=== PATIENT | female | born 1945 | race Hispanic/Latino ===

== ENCOUNTER 2017-05-31 09:21 | Day surgery (SDC) | payer MEDICARE ==
[2017-05-23 10:11] VITALS: BMI 25.8
[2017-05-31] MEDS ORDERED: Midazolam 2 MG/2 ML VIAL ONE (12:10)
[2017-05-31] MEDS ORDERED: Naloxone 0.4 mg/ml Inj (Adult) ONE (12:10)
[2017-05-31] MEDS ORDERED: Flumazenil 0.1 mg/ml Inj (5ml) IVP ONE (12:10)
[2017-05-31] MEDS ORDERED: Midazolam 2 MG/2 ML VIAL IV ONE ×5 (12:12→12:26)
[2017-05-31] MEDS ORDERED: Sodium Chloride 0.9% 1,000 ML IV SCH (13:15)
[2017-05-31 14:23] VITALS: BP 151/68; PULSE 57; RESP 18; TEMP 97.7; O2SAT 93
--- NOTE | 2017-05-31 16:45 | CARD ---
APPROVED REPORT EXAM: Transesophageal echocardiogram with color flow Doppler. INDICATION OBSTRUCTIVE HYPERTROPHIC CARDIOMYOPATHY Aortic Valve LVOT Peak Kldjivdi435.0cm/sLVOT VTI32.00cm Mitral Valve E/A ratio0.0 TDI E/Lateral E'0.0E/Medial E'0.0 Tricuspid Valve TR Peak [id number]/sRAP [id number] Peak Gr.39mmHg [id number] Reason For Test : R/O IHSS PROCEDURE After obtaining informed consent, patient underwent transesophageal echo in the Echo Lab. Type of Sedation : Conscious Sedation Sedation was administered by DR. Barajas. Sedation was achieved with Versed and , Fentanyl 4mg and 200 mcg intravenously. Transesophageal probe was inserted and advanced into esophagus without difficulty. Echo enhancement indication: R/O Septal defect. Echo enhancement agent administered: Agitated Saline The SHANTELL was performed without complications. Throughout the procedure, the blood pressure, pulse oximetry, cardiac rhythm, and rate were monitored. The patient tolerated the procedure without adverse effects. Recovery from conscious sedation was uneventful and vital signs were stable. LEFT VENTRICLE The left ventricle is normal size. There is mild left ventricular hypertrophy. Proximal septal thickening is noted. The left ventricular function is normal.EF-65-70% There is normal LV segmental wall motion. No left ventricle thrombus noted on this study. There is no ventricular septal defect visualized. There is no left ventricular aneurysm. There is no mass noted in the left ventricle. RIGHT VENTRICLE The right ventricle is normal size. There is normal right ventricular wall thickness. The right ventricular systolic function is normal. ATRIA The left atrium is moderately dilated. The right atrium is mildly dilated. RA -4.8 cm The interatrial septum is intact with no evidence for an atrial septal defect. AORTIC VALVE The aortic valve is mildly thickened. There is trace aortic regurgitation. There is no aortic valvular stenosis. There is no aortic valvular vegetation. MITRAL VALVE The mitral valve leaflets are thickened. There is no evidence of mitral valve prolapse. There is no mitral valve stenosis. Mitral regurgitation is moderate, when SBP_175, Mild to Moderate when SBP-121 TRICUSPID VALVE The tricuspid valve leaflets display thickening. There is moderate tricuspid regurgitation.RVSP-50 mmof Hg. There is no tricuspid valve prolapse or vegetation. There is no tricuspid valve stenosis. PULMONIC VALVE The pulmonary valve is normal in structure. There is trace pulmonic valvular regurgitation. There is no pulmonic valvular stenosis. GREAT VESSELS The aortic root is normal in size. The ascending aorta is normal in size. The pulmonary artery is normal. PERICARDIAL EFFUSION There is a trace pericardial effusion. There is no pleural effusion. <Conclusion> The left ventricle is normal size.Normal LVEF-65-70% There is mild left ventricular hypertrophy. Proximal septal thickening is noted. No EVIDENCE of OZZIE, nor IHSS. Peak gradient across LVOT-7-8 mm ay rest and mean -4 mmof hg. Bi-atrial enlargement. There is trace aortic regurgitation. Mitral regurgitation is moderate, when SBP_175, Mild to Moderate when SBP-121 There is moderate tricuspid regurgitation.RVSP-50 mmof Hg. There is no pleural effusion. Intact intra Atrial septum by Color flow and bubble study Velocity in LAAA>0.4 m/s Mild plaque noted in Descending aorta. CC; Drs. Pompa/ Jose Eduardo.
== END 2017-05-31 16:45 | disposition home or self-care (01) ==
LOC: TEE 09:21
PROVIDERS: ATTEND Internal Medicine Cardiovascular Disease
DX: I42.1 Obstructive hypertrophic cardiomyopathy (principal); I42.2 Other hypertrophic cardiomyopathy; I08.1 Rheumatic disorders of both mitral and tricuspid valves; I10 Essential (primary) hypertension; I25.10 Atherosclerotic heart disease of native coronary artery without angina pectoris; Z88.0 Allergy status to penicillin
CPT/HCPCS: 93312; J2250; J3010; J7040

== ENCOUNTER 2018-05-11 09:52 | Emergency (ER) | payer MEDICARE ==
[2018-05-11 09:52] VITALS: BMI 25.8
[2018-05-11 10:03] VITALS: RESP 18
--- NOTE | 2018-05-11 10:45 | ED PDOC ---
Arrival/HPI - General Chief Complaint: Headache Historian: Patient - History of Present Illness Narrative History of Present Illness (Text): 05/11/18 10:41 72yo female with pmhx of hypertension present with complaint of left sided head/face pain, left wrist and b/l fingers pain s/p trauma this morning. States she tripped and fell this morning. Notes hitting the left side of her face/head against an object and then breaking her fall. She denies LOC, dizziness, visual changes, focal weakness, nausea, vomiting, neck pain, back pain, any other complaint. Past Medical History - Provider Review Nursing Documentation Reviewed: Yes - Reproductive Menopause: Yes - Cardiac Hx Hypertension: Yes Hx Pacemaker: No - Pulmonary Hx Chronic Obstructive Pulmonary Disease (COPD): Yes - Neurological Hx Paralysis: No - Hematological/Oncological Hx Blood Transfusions: Yes Hx Blood Transfusion Reaction: No - Musculoskeletal/Rheumatological Hx Musculoskeletal Disorders: Yes - Psychiatric Hx Emotional Abuse: No Hx Physical Abuse: No Hx Substance Use: No - Surgical History Hx Cholecystectomy: Yes Hx Orthopedic Surgery: Yes - Anesthesia Hx Anesthesia Reactions: No Hx Malignant Hyperthermia: No - Suicidal Assessment Feels Threatened In Home Enviroment: No Family/Social History - Physician Review Nursing Documentation Reviewed: Yes Family/Social History: Unknown Family HX Smoking Status: Never Smoked Hx Alcohol Use: No Hx Substance Use: No Allergies/Home Meds Allergies/Adverse Reactions: Allergies Penicillins Allergy (Severe, Verified 05/11/18 10:03) BLISTERS tetracycline Allergy (Severe, Verified 05/11/18 10:03) CRAWLING FEELING CRAWLING FEELING lactose Adverse Reaction (Severe, Verified 05/11/18 10:03) GI SYMPTHOMS GI SYMPTHOMS Home Medications: Home Meds Medication Instructions Recorded Confirmed RX: Meclizine [Antivert] 12.5 mg PO QPM 04/14/14 05/11/18 Bioflav,Lemon/Vit Bcomp,C 1 cap PO DAILY 05/31/17 05/11/18 [Lipo-Flavonoid Plus Caplet] Metoprolol Tartrate [Lopressor] 25 mg PO BID 05/31/17 05/11/18 Review of Systems - Physician Review All systems were reviewed & negative as marked: Yes - Review of Systems Constitutional: Normal Eyes: Normal ENT: Normal Respiratory: Normal Cardiovascular: Normal Gastrointestinal: Normal Genitourinary Female: Normal Musculoskeletal: Arthralgias (B/L hand) Skin: Normal Neurological: Headache Endocrine: Normal Hemo/Lymphatic: Normal Psychiatric: Normal Physical Exam Vital Signs Reviewed: Yes Vital Signs Temp Pulse Resp BP Pulse Ox 05/11/18 10:00 98 F 67 18 209/80 H 98 05/11/18 09:52 98 F 67 18 209/80 H 98 Temperature: Afebrile Blood Pressure: Hypertensive Pulse: Regular Respiratory Rate: Normal Appearance: Positive for: Well-Appearing, Non-Toxic, Comfortable Pain Distress: None Mental Status: Positive for: Alert and Oriented X 3 - Systems Exam Head: Present: Atraumatic, Normocephalic, Other (Ecchymosis noted over the left temral area) Pupils: Present: PERRL Extroacular Muscles: Present: EOMI, Other (Left sided upper eyelid mild swelling with overlaying ecchymosis noted) Conjunctiva: Present: Normal Mouth: Present: Moist Mucous Membranes Neck: Present: Normal Range of Motion Respiratory/Chest: Present: Clear to Auscultation, Good Air Exchange. No: Respiratory Distress, Accessory Muscle Use Cardiovascular: Present: Regular Rate and Rhythm, Normal S1, S2. No: Murmurs Abdomen: No: Tenderness, Distention, Peritoneal Signs Back: Present: Normal Inspection Upper Extremity: Present: Normal ROM, NORMAL PULSES, Neurovascularly Intact, Other (Abrasion noted over the left and right 5th fingers). No: Cyanosis, Edema, Tenderness, Swelling, Deformity Lower Extremity: Present: Normal Inspection. No: Edema Neurological: Present: GCS=15, CN II-XII Intact, Speech Normal Skin: Present: Warm, Dry, Normal Color. No: Rashes Psychiatric: Present: Alert, Oriented x 3, Normal Insight, Normal Concentration Medical Decision Making ED Course and Treatment: 05/11/18 18:05 PT in ED for stated history. She was not in any distress and nurologically intact. Head CT IMPRESSION: No acute intracranial abnormality. Maxillofacial CT IMPRESSION: No acute fracture or dislocation. Right 3rd mandibular molar are periapical abscess. Right hand IMPRESSION: No acute displaced fracture or dislocation. Left hand IMPRESSION: No acute fracture or dislocation. Left wrist There is diffuse bone demineralization. No acute fracture or bone destruction. Bone alignment is normal. 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 SOFT TISSUES: Normal. OTHER FINDINGS: None. IMPRESSION: No acute fracture or dislocation. All result was DW the pt. she noted that she is currently on antibiotic for gingival infection. Abrasions was cleaned with betadine and bacitracine applied Referred to her PMD. - RAD Interpretation Radiology Orders: 05/11/18 10:15 HEAD W/O CONTRAST [CT] Stat 05/11/18 10:16 MAXILLOFACIAL W/O CONTRAST [CT] Stat HAND LEFT 3 VIEWS ROUTINE [RAD] Stat HAND RIGHT 3 VIEWS [RAD] Stat WRIST, LEFT 3 VIEWS [RAD] Stat - Medication Orders Current Medication Orders: Discontinued Medications Acetaminophen (Tylenol 325mg Tab) 650 mg PO STAT STA Stop: 05/11/18 10:18 Last Admin: 05/11/18 10:26 Dose: 650 mg MAR Pain/Vitals Document 05/11/18 10:26 SRE (Rec: 05/11/18 10:27 SRE [id number]) Pain Reassessment Is This A Pain ReAssessment? Yes Sleep Is patient sleeping during reassessment? No Presence of Pain Presence of Pain Yes Pain Scale Used Protocol: PSCALES Pain Scale Used Numeric Location Left, Right or Bilateral Bilateral Pain Location Body Site Hand Description Intermittent Disposition/Present on Arrival - Present on Arrival Any Indicators Present on Arrival: No History of DVT/PE: No History of Uncontrolled Diabetes: No Urinary Catheter: No History of Decub. Ulcer: No History Surgical Site Infection Following: None - Disposition Have Diagnosis and Disposition been Completed?: Yes Diagnosis: Head injury, Wrist pain, Hand pain, Abrasion Disposition: HOME/ ROUTINE Disposition Time: 11:45 Patient Plan: Discharge Condition: STABLE Discharge Instructions (ExitCare): Closed Head Injury, Muscle and Bone Pain (DC) Additional Instructions: Follow up with your Doctor/Dentist Return to ED for any new or worsening symptoms Referrals: Isela Turner MD [Medical Doctor] - Follow up with primary Forms: [employer] (Lithuanian)
--- NOTE | 2018-05-11 11:32 | CT ---
Date of service: 05/11/2018 PROCEDURE: CT HEAD WITHOUT CONTRAST. HISTORY: s/p head trauma COMPARISON: None available. TECHNIQUE: Axial computed tomography images were obtained through the head/brain without intravenous contrast. Radiation dose: Total exam DLP = 857.25 mGy-cm. This CT exam was performed using one or more of the following dose reduction techniques: Automated exposure control, adjustment of the mA and/or kV according to patient size, and/or use of iterative reconstruction technique. FINDINGS: HEMORRHAGE: No intracranial hemorrhage. BRAIN: Trivedi-white matter differentiation is preserved. There is no mass, mass effect or abnormal extra-axial fluid collection. There is no territorial infarction. The midline sagittal structures are normal. Subcentimeter bifrontal and left frontal parafalcine calcified extra-axial lesions may represent small calcified meningiomas. VENTRICLES: There is mild age-related global parenchymal volume loss and proportionate enlargement of the ventricles and cortical sulci. CALVARIUM: There is no calvarial fracture or extracranial soft tissue swelling. PARANASAL SINUSES: Predominantly clear. MASTOID AIR CELLS: Predominantly clear. OTHER FINDINGS: None. IMPRESSION: No acute intracranial abnormality.
--- NOTE | 2018-05-11 11:39 | CT ---
Date of service: 05/11/2018 PROCEDURE: CT MAXILLOFACIAL BONES WITHOUT CONTRAST HISTORY: left facial/periorbital pain COMPARISON: None available. TECHNIQUE: Contiguous axial CT images of the maxillofacial bones were obtained. Coronal and sagittal reformats were generated. Radiation dose: Total exam DLP = 855.26 mGy-cm. This CT exam was performed using one or more of the following dose reduction techniques: Automated exposure control, adjustment of the mA and/or kV according to patient size, and/or use of iterative reconstruction technique. FINDINGS: NASAL BONES: No acute fracture. ORBITS: The globes are symmetric and normal in appearance. No acute orbital fracture. PARANASAL SINUSES/ MASTOIDS: Small retention cyst/polyp in the left maxillary sinus. The remaining included paranasal sinuses are clear. MAXILLA: No acute maxillofacial fracture. MANDIBLE/ TEMPOROMANDIBULAR JOINTS: No acute fracture or dislocation. SKULL BASE: Unremarkable. TEMPORAL BONES: Middle ears and mastoid grossly unremarkable. OTHER FINDINGS: There is a periapical abscess in the right 3rd mandibular tooth. There is fatty atrophy of the right parotid gland. IMPRESSION: No acute fracture or dislocation. Right 3rd mandibular molar are periapical abscess.
--- NOTE | 2018-05-11 11:41 | RAD ---
Date of service: 05/11/2018 PROCEDURE: Three views of the right hand. HISTORY: s/p trauma COMPARISON: None. FINDINGS: BONES: There is diffuse bone demineralization. There is no acute displaced fracture or bone destruction. Bone alignment is normal. JOINTS: Mild degenerative osteoarthrosis in the interphalangeal and metacarpophalangeal joints. SOFT TISSUES: Normal. OTHER FINDINGS: None. IMPRESSION: No acute displaced fracture or dislocation.
--- NOTE | 2018-05-11 11:42 | RAD ---
PROCEDURE: Left Hand Radiographs. HISTORY: s/p trauma COMPARISON: None. FINDINGS: BONES: There is diffuse bone demineralization. There is no acute displaced fracture or bone destruction. Bone alignment is normal. JOINTS: Mild degenerative osteoarthrosis in the interphalangeal and metacarpophalangeal joints. SOFT TISSUES: Normal. OTHER FINDINGS: None. IMPRESSION: No acute fracture or dislocation.
--- NOTE | 2018-05-11 11:44 | RAD ---
Date of service: 05/11/2018 PROCEDURE: Left Wrist Radiographs. HISTORY: s/p trauma COMPARISON: None. FINDINGS: BONES: There is diffuse bone demineralization. No acute fracture or bone destruction. Bone alignment is normal. 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 SOFT TISSUES: Normal. OTHER FINDINGS: None. IMPRESSION: No acute fracture or dislocation.
[2018-05-11 11:50] VITALS: BP 183/77; PULSE 57; TEMP 98.2; O2SAT 99
[2018-05-11] MEDS ORDERED: Bacitracin 500 Units/gm Oint Foilpak UD ONE (11:54)
== END 2018-05-11 11:53 | disposition home or self-care (01) ==
LOC: ED 09:52
DX: S09.90XA Unspecified injury of head, initial encounter (principal); S60.417A Abrasion of left little finger, initial encounter; S60.416A Abrasion of right little finger, initial encounter; W01.0XXA Fall on same level from slipping, tripping and stumbling without subsequent striking against object, initial encounter; Y92.9 Unspecified place or not applicable; M25.532 Pain in left wrist; M79.642 Pain in left hand; M79.641 Pain in right hand

== ENCOUNTER 2018-05-23 22:19 | Emergency (ER) | payer MEDICARE ==
[2018-05-23 22:45] VITALS: BMI 25.1
[2018-05-23 22:47] VITALS: TEMP 98
--- NOTE | 2018-05-23 23:05 | ED PDOC ---
Arrival/HPI - General Chief Complaint: ENT Problem Time Seen by Provider: 05/23/18 22:23 Historian: Patient - History of Present Illness Narrative History of Present Illness (Text): 05/23/18 22:58 73 year old female, whose past medical history includes hypertension, presents to the emergency department complaining of on and off nose bleed all day. Patient state her daughter gave her a tiny bit of tissue to put in her nose to c ontrol the bleeding. She is now worried that the piece of tissue is stuck in her nose and is afraid to remove because she does not want the nose bleed to start up again. Patient is not on any blood thinners. Patient denies any other symptoms. Patient denies any fever, chills, chest pain, shortness of breath, nausea, vomiting, diarrhea, urinary symptoms, back pain, neck pain, headache, dizziness, or any other complaints. PMD: Dr. Pompa Time/Duration: Other (today) Symptom Onset: Gradual Symptom Course: Intermittent Activities at Onset: Light Context: Home Past Medical History - Provider Review Nursing Documentation Reviewed: Yes - Cardiac Hx Hypertension: Yes Hx Pacemaker: No - Pulmonary Hx Chronic Obstructive Pulmonary Disease (COPD): Yes - Neurological Hx Paralysis: No - Hematological/Oncological Hx Blood Transfusions: Yes Hx Blood Transfusion Reaction: No - Musculoskeletal/Rheumatological Hx Musculoskeletal Disorders: Yes - Psychiatric Hx Emotional Abuse: No Hx Physical Abuse: No Hx Substance Use: No - Surgical History Hx Cholecystectomy: Yes Hx Orthopedic Surgery: Yes - Anesthesia Hx Anesthesia Reactions: No Hx Malignant Hyperthermia: No - Suicidal Assessment Feels Threatened In Home Enviroment: No Family/Social History - Physician Review Nursing Documentation Reviewed: Yes Family/Social History: No Known Family HX Smoking Status: Never Smoked Hx Alcohol Use: No Hx Substance Use: No Allergies/Home Meds Allergies/Adverse Reactions: Allergies Penicillins Allergy (Severe, Verified 05/23/18 22:45) BLISTERS tetracycline Allergy (Severe, Verified 05/23/18 22:45) CRAWLING FEELING CRAWLING FEELING lactose Adverse Reaction (Severe, Verified 05/23/18 22:45) GI SYMPTHOMS GI SYMPTHOMS Home Medications: Home Meds Medication Instructions Recorded Confirmed RX: Meclizine [Antivert] 12.5 mg PO QPM 04/14/05/23/18 Bioflav,Lemon/Vit Bcomp,C 1 cap PO DAILY 05/31/17 05/23/18 [Lipo-Flavonoid Plus Caplet] Metoprolol Tartrate [Lopressor] 25 mg PO BID 05/31/17 05/23/18 Review of Systems - Physician Review All systems were reviewed & negative as marked: Yes - Review of Systems Constitutional: absent: Fevers, Other (Chills) ENT: Epistaxis Respiratory: absent: SOB Cardiovascular: absent: Chest Pain Gastrointestinal: absent: Diarrhea, Nausea, Vomiting Genitourinary Female: absent: Dysuria, Frequency, Hematuria Musculoskeletal: absent: Back Pain, Neck Pain Neurological: absent: Headache, Dizziness Physical Exam Vital Signs Reviewed: Yes Vital Signs Temp Pulse Resp BP Pulse Ox 05/23/18 22:46 98.0 F 77 16 168/88 H 100 Temperature: Afebrile Blood Pressure: Hypertensive Pulse: Regular Respiratory Rate: Normal Appearance: Positive for: Well-Appearing, Non-Toxic, Comfortable Pain Distress: None Mental Status: Positive for: Alert and Oriented X 3 - Systems Exam Head: Present: Atraumatic, Normocephalic Pupils: Present: PERRL Extroacular Muscles: Present: EOMI Conjunctiva: Present: Normal Mouth: Present: Moist Mucous Membranes Pharnyx: Present: Normal Nose (Internal): Present: No Active Bleeding (when tissue removed on the left naris) Neurological: Present: GCS=15, CN II-XII Intact, Speech Normal Skin: Present: Warm, Dry, Normal Color. No: Rashes Psychiatric: Present: Alert, Oriented x 3, Normal Insight, Normal Concentration Medical Decision Making ED Course and Treatment: 05/23/18 22:58 Impression: 73 year old female presents complaining of on and off epistaxis all day and worried that a piece of tissue she put in there to control the bleeding is stuck. Plan: -- Removed tissue from left nare with forceps -- Reassess and disposition Prior Visits: Notes and results from previous visits were reviewed. Progress Notes: 05/23/18 23:35 On re-evaluation, there is not current active bleeding. Patient is in no acute distress. I have discussed the plan with the patient, who expresses understanding. Patient in agreement with plan to be discharged home. Patient is stable for discharge. Patient was instructed to follow up with ENT or return if symptoms worsen or new concerning symptoms arise. - Scribe Statement The provider has reviewed the documentation as recorded by the Leanne Weaver Provider Scribe Attestation: All medical record entries made by the Leanne were at my direction and personally dictated by me. I have reviewed the chart and agree that the record accurately reflects my personal performance of the history, physical exam, medical decision making, and the department course for this patient. I have also personally directed, reviewed, and agree with the discharge instructions and disposition. Disposition/Present on Arrival - Present on Arrival Any Indicators Present on Arrival: No History of DVT/PE: No History of Uncontrolled Diabetes: No Urinary Catheter: No History of Decub. Ulcer: No History Surgical Site Infection Following: None - Disposition Have Diagnosis and Disposition been Completed?: Yes Diagnosis: Epistaxis Disposition: HOME/ ROUTINE Disposition Time: 23:45 Patient Plan: Discharge Condition: STABLE Discharge Instructions (ExitCare): Nosebleeds (DC) Additional Instructions: PERNELL SORIANO, thank you for letting us take care of you today. Your provider was Evie Paz MD and you were treated for NOSEBLEED. The emergency medical care you received today was directed at your acute symptoms. If you were prescribed any medication, please fill it and take as directed. It may take several days for your symptoms to resolve. Return to the Emergency Department if your symptoms worsen, do not improve, or if you have any other problems. Please contact your doctor or call one of the physicians/clinics you have been referred to that are listed on the Patient Visit Information form that is included in your discharge packet. Bring any paperwork you were given at discharge with you along with any medications you are taking to your follow up visit. Our treatment cannot replace ongoing medical care by a primary care provider outside of the emergency department. Thank you for allowing the [facility] team to be part of your care today. If you had an X-Ray or CT scan: A Radiologist will review the ED reading if any change in treatment is needed we will contact you. If you had a blood, urine, or wound culture: It will take several days for the results, if any change in treatment is needed we will contact you. If you had an STI test: It will take 48 hours for the results. Please call after 1 week if you have not heard back. Forms: [employer] ([place])
[2018-05-23 23:48] VITALS: BP 147/84; PULSE 76; RESP 18; O2SAT 99
== END 2018-05-23 23:50 | disposition home or self-care (01) ==
LOC: ED 22:19
DX: R04.0 Epistaxis (principal)